=== PATIENT | male | born 1995 | race Two or more races ===

== ENCOUNTER 2018-10-17 00:28 | Day surgery (SDC) | payer OTHER ==
[~2018-10-17] VITALS: Ht 165.1 cm; Wt 73.5 kg
[2018-10-17] MEDS ORDERED: ROPIVACAINE 0.2% 20 ML VIAL ONE (06:33)
[2018-10-17] MEDS ORDERED: ONDANSETRON 4 MG/2 ML VIAL ONE (07:18)
[2018-10-17] MEDS ORDERED: DEXAMETHASONE SOD 4 MG/ML VIAL ONE (07:18)
[2018-10-17] MEDS ORDERED: SUGAMMADEX SOD 200 MG/2 ML SDV ONE (07:18)
[2018-10-17] MEDS ORDERED: fentaNYL CITR 250 MCG/5 ML AMP ONE (07:18)
[2018-10-17] MEDS ORDERED: PROPOFOL EMUL(*) 10MG/ML 20 ML 20 ML ONE (07:18)
[2018-10-17] MEDS ORDERED: LIDOCAINE MPF 1% 5 ML VIAL ONE (07:18)
[2018-10-17] MEDS ORDERED: ROCURONIUM BROM 10 MG/ML 10 ML ONE (07:18)
[2018-10-17] MEDS ORDERED: KETAMINE HCL 200 MG/20 ML MDV ONE (07:19)
[2018-10-17 07:20] VITALS: BP 139/89
[2018-10-17] MEDS ORDERED: NORMOSOL R SOLN(*) 1000 ML BAG 1,000 ML IV PRN (07:55)
[2018-10-17] MEDS ORDERED: LIDOCAINE/SOD BICARB 8.4% SYR ID ONE (07:55)
[2018-10-17] MEDS ORDERED: ceFAZolin(*) 1 GM VIAL 1 GM in NS(*) 0.9% 100 ML MINI-BAG 100 ML IVPB ONE (07:55)
[2018-10-17] MEDS ORDERED: FAMOTIDINE 20 MG TAB PO ONE (07:55)
[2018-10-17] MEDS ORDERED: MIDAZOLAM 2 MG/2 ML VIAL IVP PRN (07:55)
[2018-10-17] MEDS ORDERED: CELECOXIB 200 MG CAP PO ONE (07:55)
[2018-10-17] MEDS ORDERED: fentaNYL CITR 100 MCG/2 ML AMP ONE ×2 (11:27→12:11)
[2018-10-17] MEDS ORDERED: HYDR-653 PO (12:28)
--- NOTE | 2018-10-17 12:45 | OPERATIVE REPORT 1 ---
EVENT DATE: October 17, 2018 SURGEON: Alex Burroughs MD ANESTHESIOLOGIST: Camilo Bates MD ANESTHESIA: General LMA. ALMOND ROASTER: JANE Santana, FIELD SUPERVISOR [employer] PREOPERATIVE DIAGNOSIS Right shoulder labral tear in the anterior portion of the labrum as well as the superior aspect of the labrum or a SLAP tear. POSTOPERATIVE DIAGNOSES 1. Right shoulder labral tear in the anterior portion of the labrum as well as the superior aspect of the labrum or a SLAP tear. 2. Supraspinatus rotator cuff tear. PROCEDURES PERFORMED 1. Right shoulder arthroscopic capsular labral repair of the anterior inferior labrum. 2. Superior labral anterior to posterior repair. 3. Rotator cuff repair of supraspinatus. FINDINGS Patient has a significant tear in his labrum, both in the SLAP area and in the anterior inferior portion but were both amenable for fixation and then a small focal tear within the supraspinatus that was amenable for fixation. ESTIMATED BLOOD LOSS Minimal. DRAINS None. COMPLICATIONS None. IMPLANTS USED 1. Four 1.9 mm JuggerKnot anchors made by [email or web address] for the labral repair. 2. One 2.9 double-loaded anchor for the rotator cuff repair. SPECIMENS None. TOURNIQUET TIME Not applicable. INDICATIONS AND HISTORY This patient is a 23-year old male who presented to my clinic for evaluation of right shoulder pain and irritation. He is a college transfer at the [employer] and had pain and irritation associated with some instability type episodes and MRI indicated that he had a large labral tear so, therefore, we talked to him about the implications of this as well as treatment options. He wanted to go ahead with fixation since he had failed all conservative management so, therefore, we got him set up to do this today, October 17, 2018. The risks and benefits were discussed with the patient and informed consent was obtained. 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 After discussion of those risks and benefits, informed consent was obtained at the last clinic visit. DESCRIPTION OF PROCEDURE The patient was brought into the operating room. He and the procedure were both verified. He was placed supine on the operating room table and induced intubated by anesthesia. He was then turned in the lateral decubitus position with the right arm towards the ceiling and the right arm was prepped and draped in the usual fashion and hung in traction. A time-out was observed, verifying the correct patient and procedure and then I made small incisions in the anterior and posterior aspect of the shoulder. I inserted the scope posteriorly into the intra-articular portion of the joint. This was when there was noted to be a significant amount of fraying and tearing within the labrum itself and there was a large section of labrum that was torn almost like a bucket handle up into the area where the biceps was. The biceps was very frayed and irritated but we did try and preserve it as much as possible. After debriding the entirety of the labrum where it was torn in the SLAP area and around the biceps and also on the inferior anterior portion in the [place] region, I was then able to decorticate the tissue a little bit and then make a percutaneous portal anteriorly in order to put two anchors into this area. I then used the spectrum to pass them to make a capsule labral repair in this area and then create another bumper into this area. I then probed the posterior labrum and there were no signs or problems or issues associated with this and so, therefore, the inferior portion was done well. I then turned attention where I made another percutaneous portal to put a superior anchor just behind the biceps tendon and then I put two anchors posterior to the biceps tendon to repair the SLAP tear in this area utilizing a spectrum once again to pass the sutures back along this area. Once I had this tightened down, the labrum was then secured about 360 degrees around the entire area of the labrum itself and then we debrided the undersurface of the rotator cuff. I noted there was a tear just by the biceps tendon and it was torn about three-quarters of the way through the tissue and nearly full thickness in this area. Therefore, I then went in the subacromial space. Once in the subacromial space, I performed a complete bursectomy and a little bit of subacromial decompression in this area. This was then followed by debridement of the remainder of the rotator cuff and then taken down to a full thickness tear in order to make it amenable for repair. After I decorticated the footprint, I then put in a 2.9 anchor into this area, passed two stitches in a [id number] repair fashion and then one longitudinally. I then tied the [id number] repair first and then pulled the longitudinal stitch back and then tied this over the top. This then allowed the rotator cuff to lay down into the footprint very well and had no signs or problems of gaping associated with internal or external rotation. I then removed all instrumentation, drained the fluid out of the shoulder, closed the portal sites with 4-0 Monocryl in interrupted subcuticular fashion and then anesthetized with 1% ropivacaine, dressed with Steri-Strips, gauze, 4 x 4's and a soft dressing. The patient was put in abduction sling and awakened and extubated and transferred to PACU in stable condition. JOSE
[2018-10-17 13:25] VITALS: BP 144/103
[2018-10-17 13:30] VITALS: BP 129/92
[2018-10-17] MEDS ORDERED: APAP/HYDROCODONE 325/5 TAB PO PRN (13:30)
[2018-10-17 13:35] VITALS: BP 136/99
[2018-10-17 13:37] VITALS: BP 145/99
--- NOTE | 2018-10-17 14:29 | NUR ---
1320 PT REC'D IN SD VIA CART, SAFETY MAINTAINED. SBAR FROM Miriam COLLAZO, RN AND Raymundo FRIEND, JASPER. VSS, PT WOULD LIKE TO LEAVE SOONER RATHER THAN LATER. ASSESSMENT UNREMARKABLE. PAIN INCREASING, FIRST PO ANALGESIC PROCESS INTIATED 1333 PT MEDICATED, PAIN HAS INCREASED TO 3/10 1335 ORTHOSTATIC VITALS STABLE, PT DENIES DIZZINESS 1337 PT ALLOWED TO DRESS, HELPED WITH REMOVAL OF SLING AND DRESSING UPPER HALF 1342 CALLED ANTONELLA MONIQUE FOR PT, HELP PT BACK INTO SLING, SECURED 1350 IV REMOVED BY PABLO ATKINS SN, CATH TIP INTACT, PRESSURE DRESSING APPLIED 1400 DC INSTRUCTIONS COVERED WITH PT, FURNACE ATTENDANT, TONY, AND FRIEND/ROOM MATE, ANTONELLA. VERBALIZED UNDERSTANDING. ALL BELONGINGS WITH PT. WALKED TO ANTONELLA'S CAR OUTSIDE VISITOR ENTRANCE ON . PT SELF-TRANSFERRED INTO VEHICLE WITHOUT INCIDENT. STATES PAIN PILL HAS NOT KICKED IN YET.
== END 2018-10-17 13:20 | disposition home or self-care (01) ==
LOC: OR 00:28
PROVIDERS: ATTEND Orthopaedic Surgery
DX: M75.101 Unspecified rotator cuff tear or rupture of right shoulder, not specified as traumatic (principal); S43.431A Superior glenoid labrum lesion of right shoulder, initial encounter
CPT/HCPCS: 29807; 29827; A4565; C1713; J0690; J1100; J2001; J2250; J2405; J2704; J2795; J3010; J3490